=== PATIENT | female | born 1955 | race Caucasian/White ===

== ENCOUNTER 2024-02-26 15:01 | Inpatient (IN) ==
--- NOTE | 2024-02-26 15:16 | Emergency Department Note ---
Impression & Plan Syncope, Sternal fracture, Acute hypotension, Hernia, hiatal ED Provider Note NAME: REMEDIOS WARREN AGE: 68 SEX: F : 1955 ARRIVES VIA: Ambulance INFORMANT: Patient, EMS ED PROVIDER(S): Yuval Ribeiro DO CHIEF COMPLAINT: Syncope HPI: The patient is a 68-year-old female who presented to the emergency department for an evaluation after having a syncopal episode. The patient states that she does not know exactly happened but her significant other was sitting beside her. [place] was [place] the stadium and she complained that she was feeling very warm. Her significant other noted that she started to shake but not have convulsions or seizure. He noted that she was not breathing. They alerted the prehospital personnel. The patient started to receive chest compressions but return to consciousness quickly. There is no reported postictal phase. The patient does complain of some chest pain but is reproducible and was felt to be secondary to the CPR. She did receive fentanyl prior to arrival. The patient was reportedly hypotensive as well. ROS: See above HPI for pertinent positives & negatives. A total of 10 systems reviewed and were otherwise negative. PAST MEDICAL HISTORY: See Below PAST SURGICAL HISTORY: See Below FAMILY HISTORY: See Below SOCIAL HISTORY: See Below HOME MEDICATIONS: See Below ALLERGIES: See Below VITALS: See Below PHYSICAL EXAMINATION: GENERAL: Patient is awake alert in no acute distress patient is resting comfortably and showing no signs of anxiety EYES: The conjunctivae are clear. The pupils are round and reactive. EARS, NOSE, MOUTH AND THROAT: The nose is without any evidence of any deformity. NECK: The neck is nontender and supple. RESPIRATORY: Normal respiratory effort is noted there is no evidence of wheezing rhonchi or rales CARDIOVASCULAR: Regular rate and rhythm noted there no murmurs rubs or gallops normal S1 normal S2. GASTROINTESTINAL: The abdomen is soft. Abdomen is nontender. MUSCULOSKELETAL/EXTREMITIES: There is no evidence of gross deformity full range of motion is noted in the hips and shoulders. SKIN: There is no obvious evidence of any rash. There are no petechiae, pallor or cyanosis noted. NEUROLOGIC: Patient is awake alert and oriented x3 strength is symmetric patellar reflexes are 2+ bilaterally MEDICAL DECISION MAKING: The patient is a 68-year-old female who presented to the emergency department for an evaluation after having a syncopal episode. The patient was at the football game and had a syncopal episode. They started CPR on the patient because she was felt to have lost pulses. She had return of consciousness rather quickly. I am unsure exactly what happened with this episode but the patient did complain of feeling very hot prior to the episode. She was found to be hypotensive. She was treated with free hospital fluids as well as IV pain medication. She was further treated with pain medication and IV fluids in the emergency department. I discussed patient's laboratory and radiographic studies with her. She continues to have borderline blood pressure. Her D-dimer was elevated and she was found of a sternal fracture. CT of the chest did not show any signs of pulmonary embolism. Given the patient's findings I do not feel that she is a good candidate for outpatient follow-up at this time. She continues to be hypotensive at times. I will discuss her condition with the on- call [facility]. Triage Nursing notes reviewed. Prior medical records reviewed Vital Signs: reviewed and remarkable for episodes of hypotension Differential diagnosis: Vasovagal event, dehydration, infection, hypoglycemia, electrolyte abnormalities, cardiac sources, intracerebral event, pulmonary embolism, seizure, toxicologic, neurologic, as well as other pathologies. ER treatment provided: See below Diagnostics interpreted by me: ECG: EKG was obtained in the emergency department. My interpretation is normal sinus rhythm at 71 bpm. There is no ectopy. There was no acute ST segment abnormalities noted. No previous tracing was available. Prehospital EKG was reviewed. My interpretation is sinus rhythm at 68 bpm. There was no ectopy or acute ST segment abnormalities. This compares similar to the tracing obtained in the emergency department. Cardiac Monitoring: An order was placed for continuous cardiac monitoring. The monitor shows a rate of 82 bpm with sinus rhythm. Laboratory studies: As stated above and show below. Imaging studies: See below. Radiographic imaging was reviewed by myself Consultation(s): I discussed this case with Dr. Alcantara who is on-call for the [facility] group. Past Med/Surg History Problem List (Updated 02/26/24 @ 16:59 by Yuval Ribeiro DO) Hernia, hiatal (Acute) Acute hypotension (Acute) Sternal fracture (Acute) Syncope (Acute) Medical History Hypertension Social History Smoking Status: Never smoker Preferred Language: Icelandic Feels Safe at Home: Yes Allergies Allergies Allergy/AdvReac Type Severity Reaction Status Date / Time Sulfa (Sulfonamide Allergy Hives Verified 02/26/24 16:16 Antibiotics) thimerosal AdvReac Redness of Verified 02/26/24 16:17 Skin Results & Data (ED) Vital Signs Vital Signs - 24 hr 02/26/24 15:18 02/26/24 15:30 02/26/24 15:36 Temperature 36.5 C Temperature Source Oral Pulse Rate 73 64 Pulse Rate [Right Finger] 80 Pulse Rhythm Regular Pulse Strength Normal Respiratory Rate 14 18 Respiratory Effort / Characteristics Non-Labored Spontaneous Non-Labored Spontaneous Respiratory Depth Normal Normal Respiratory Pattern Regular Blood Pressure 102/65 Blood Pressure [Left Arm] 92/65 L Blood Pressure Mean 77 Blood Pressure Mean [Left Arm] 74 Pulse Oximetry 99 98 98 Oxygen Delivery Method Room Air Room Air Room Air Sepsis Recent Fever Within 48 Hours No Sepsis New/Unexplained Change in Mental Status N/A Sepsis Action Taken by Nursing No Action Required 02/26/24 15:45 02/26/24 15:55 02/26/24 16:00 Temperature Temperature Source Pulse Rate 62 Pulse Rate [Right Finger] 68 78 Pulse Rhythm Pulse Strength Respiratory Rate 19 18 Respiratory Effort / Characteristics Non-Labored Spontaneous Non-Labored Spontaneous Respiratory Depth Normal Normal Respiratory Pattern Regular Regular Blood Pressure Blood Pressure [Left Arm] 98/64 L 93/59 L Blood Pressure Mean Blood Pressure Mean [Left Arm] 75 70 Pulse Oximetry 100 100 Oxygen Delivery Method Room Air Room Air Sepsis Recent Fever Within 48 Hours Sepsis New/Unexplained Change in Mental Status Sepsis Action Taken by Nursing 02/26/24 16:15 02/26/24 16:36 02/26/24 16:45 Temperature Temperature Source Pulse Rate Pulse Rate [Right Finger] 86 92 H 82 Pulse Rhythm Pulse Strength Respiratory Rate 20 16 16 Respiratory Effort / Characteristics Non-Labored Spontaneous Non-Labored Spontaneous Non-Labored Spontaneous Respiratory Depth Normal Normal Normal Respiratory Pattern Regular Regular Blood Pressure Blood Pressure [Left Arm] 105/66 87/62 L 112/62 Blood Pressure Mean Blood Pressure Mean [Left Arm] 79 70 78 Pulse Oximetry 100 99 98 Oxygen Delivery Method Room Air Room Air Room Air Sepsis Recent Fever Within 48 Hours Sepsis New/Unexplained Change in Mental Status Sepsis Action Taken by Nursing 02/26/24 17:00 Temperature Temperature Source Pulse Rate Pulse Rate [Right Finger] 86 Pulse Rhythm Pulse Strength Respiratory Rate 18 Respiratory Effort / Characteristics Non-Labored Spontaneous Respiratory Depth Normal Respiratory Pattern Regular Blood Pressure Blood Pressure [Left Arm] 104/68 Blood Pressure Mean Blood Pressure Mean [Left Arm] 80 Pulse Oximetry 99 Oxygen Delivery Method Room Air Sepsis Recent Fever Within 48 Hours Sepsis New/Unexplained Change in Mental Status Sepsis Action Taken by Long-Term Medications Current Medication List: was personally reviewed by me Laboratory Data Attestation: I reviewed the patient's lab results. 02/26/24 15:10 02/26/24 15:10 Lab Results 02/26/24 02/26/24 Range/Units 15:10 15:18 WBC 6.81 (4.8-10.8) K/ul RBC 4.03 L (4.20-5.40) M/uL Hgb 12.0 (12.0-16.0) g/dl POC Hgb 12.6 (12.0-16.0) g/dl Hct 36.6 L (37.0-47.0) % POC Hct 37 (37-47) % MCV 90.8 (80.0-100.0) fL MCH 29.8 (25.0-34.0) pg MCHC 32.8 (32.0-36.0) g/dL RDW Std Deviation 48.3 H (36.4-46.3) fL RDW Coeff of Patrick 14.5 (11.5-14.5) % Plt Count 278 (130-400) K/uL MPV 9.9 (9.4-12.4) fL Immature Gran % (Auto) 0.4 % Neut % (Auto) 56.7 % Lymph % (Auto) 33.6 % Tift % (Auto) 7.5 % Eos % (Auto) 1.2 % Baso % (Auto) 0.6 % Neut # (Auto) 3.86 (1.40-6.50) K/uL Lymph # (Auto) 2.29 (1.20-3.40) K/uL Tift # (Auto) 0.51 (0.11-0.59) K/uL Eos # (Auto) 0.08 (0.00-0.50) K/uL Baso # (Auto) 0.04 (0.00-0.20) K/uL Immature Gran # (Auto) 0.03 (0.01-0.20) K/uL PT 10.8 (9.0-12.0) Seconds INR 1.0 (0.9-1.1) APTT 20 L (21-31) Seconds PTT Ratio 0.7 D-Dimer 1100 H* (0-500) ug/L FEU POC Sodium 139 (135-144) mmol/L Sodium 138 (136-145) mmol/L POC Potassium 4.1 (3.3-5.0) mmol/L Potassium 3.6 (3.5-5.1) mmol/L POC Chloride 104 (101-112) mmol/L Chloride 106 (98-107) mmol/L Carbon Dioxide 24 (21-32) mmol/L POC Total CO2 24 (24-31) mmol/L Anion Gap 8 (3-11) POC Anion Gap 16.0 (16-25) mmol/L POC BUN 20 H (7-18) mg/dl BUN 17 (6-23) mg/dl Creatinine 1.08 (0.6-1.2) mg/dl POC Creatinine 1.2 (0.6-1.3) mg/dl Est Cr Clr Drug Dosing 49.7 ml/min eGFR 56.65 BUN/Creatinine Ratio 15.7 (10-20) Glucose 81 (70-99(Fasting)) mg/dl POC Glucose (other) 83 (70-99) mg/dl Calcium 8.7 (8.6-10.3) mg/dl POC Ioniz Calcium Peace 1.10 L (1.12-1.32) mmol/l Magnesium 1.7 (1.7-2.4) mg/dl Total Bilirubin 0.4 (0.2-1.0) mg/dl AST 18 (13-39) U/L ALT 12 (7-52) U/L Alkaline Phosphatase 42 (34-104) U/L Total Creatine Kinase 79 (26-192) U/L Troponin I High Sens 2.9 (0-14) pg/ml Total Protein 6.7 (6.0-8.3) gm/dl Albumin 4.0 (3.4-5.0) gm/dl Globulin 2.7 (2.5-4.0) gm/dl Albumin/Globulin Ratio 1.5 (0.9-2) Lipase 19 (11-82) U/L TSH 7.214 H (0.300-4.500) uIu/ml Free T4 0.86 (0.61-1.60) ng/dl Ethyl Alcohol mg/dL 45.2 H (<10.0) mg/dl Administered Medications Discontinued Medications Acetaminophen (Acetaminophen 500 Mg Tab) 1,000 mg PO NOW STA Stop: 02/26/24 15:57 Last Admin: 02/26/24 16:06 Dose: 1,000 mg Documented By: JARRED Sodium Chloride (Nss) 1,000 mls @ 999 mls/hr IV .Q1H1M LOLITA Stop: 02/26/24 16:15 Last Infusion: 02/26/24 17:06 Dose: Infused Documented By: Admin: 02/26/24 15:28 Dose: 999 mls/hr [place]ed [place]: [facility] [place] Chloride (Nss) 1,000 mls @ 999 mls/hr IV .Q1H1M ONE Stop: 02/26/24 16:56 Last Admin: 02/26/24 16:07 Dose: 999 mls/hr Documented By: JARRED Ioversol (Optiray 320 125ml) 119 ml IV ONCE ONE Stop: 02/26/24 16:29 Last Admin: 02/26/24 16:28 Dose: 119 ml Documented By: ASHLEY Imaging Data Attestation: I personally reviewed and interpreted this imaging study as follows: My Impression: 1 view chest x-ray was obtained in the emergency department. My interpretation is hiatal hernia, there is no free air, final report below. CT of the chest was obtained in the emergency department. My interpretation is no free air or definite infiltrate, final report below. Radiologist's Impression: Chest X-Ray 02/26/24 15:04 XR chest 1V portable CLINICAL HISTORY: Syncope. COMPARISON STUDY: No previous studies for comparison. FINDINGS: There is no pneumothorax or pleural effusion. No consolidation is present. Pulmonary vascularity is normal. There is a large hiatal hernia. Cardiac size is likely normal. IMPRESSION: 1. No acute cardiopulmonary findings. 2. Large hiatal hernia. ACT 112: Negative or not required by law. Electronically signed by: Blaise Thao M.D. 02/26/2024 3:23 PM Chest CTA 02/26/24 16:15 CT ANGIOGRAPHY OF THE CHEST, PULMONARY EMBOLUS PROTOCOL CLINICAL HISTORY: Chest pain. Diaphoretic. Evaluate for pulmonary embolus. COMPARISON STUDY: Chest radiograph performed earlier today. TECHNIQUE: Following IV administration of 119 mL of Optiray, helical axial images of the chest were obtained utilizing the pulmonary embolus protocol. Maximal intensity projections and sagittal and coronal reformats were viewed on an independent 3D workstation. IV contrast was administered without complication. Automated exposure control was utilized for the study. A dose lowering technique was utilized adhering to the principles of ALARA. CT DOSE: 420.41 mGy.cm FINDINGS: No pulmonary emboli are identified. There is no thoracic aortic dissection. Size of the heart is normal. There is a large hiatal hernia with partially intrathoracic stomach. Of note, the intrathoracic portion of the stomach is distended with fluid and ingested contents. There is mild dilatation of the esophagus. No pneumothorax or pleural effusion is present. There is no consolidation to suggest pneumonia. A few small nodules within the lungs are likely benign. There are no suspicious pulmonary nodules. Subtle indentation of the anterior cortex of the sternum suggests an acute nondisplaced fracture. No additional fractures within the bony thorax are identified. A water attenuation 1.3 cm segment 7 hepatic lesion represents a cyst. There is no thoracic lymphadenopathy. There is no thoracic spine fractures. IMPRESSION: 1. No pulmonary emboli identified. 2. Acute nondisplaced sternal fracture. 3. Large hiatal hernia with partially intrathoracic stomach. Intrathoracic portion of the stomach distended with fluid and ingested contents. Mild dilatation of the esophagus. ACT 112: Negative or not required by law. Electronically signed by: Blaise Thao M.D. 02/26/2024 4:45 PM Discharge Plan Visit Data Chief Complaint: Cardiac Assessment Stated Complaint: CARDIAC ARREST ED Provider: Yuval Ribeiro Discharge Problem: Syncope, Sternal fracture, Acute hypotension, Hernia, hiatal Patient Disposition: Being Evaluated by Hospitalist Forms Stand Alone Forms: [facility] Referrals Referrals: PCP,NO [Primary Care Provider] - Discharge Problem: Syncope Qualifiers: Syncope type: unspecified Qualified Code(s): R55 - Syncope and collapse Sternal fracture Qualifiers: Encounter type: initial encounter Sternal location: unspecified Fracture type: closed Qualified Code(s): S22.20XA - Unspecified fracture of sternum, initial encounter for closed fracture
--- NOTE | 2024-02-26 15:24 | XRay Report ---
XR chest 1V portable CLINICAL HISTORY: Syncope. COMPARISON STUDY: No previous studies for comparison. FINDINGS: There is no pneumothorax or pleural effusion. No consolidation is present. Pulmonary vascul arity is normal. There is a large hiatal hernia. Cardiac size is likely normal. IMPRESSION: 1. No acute cardiopulmonary findings. 2. Large hiatal hernia. ACT 112: Negative or not required by law. Electronically signed by: Blaise Thao M.D. 02/26/2024 3:23 PM
[2024-02-26] MEDS: SODIUM CHLORIDE 0.9% 1,000 ML IV SCH ×2 (15:28→18:56)
[2024-02-26 15:32] LABS: iSTAT Creatinine 1.2 mg/dl (0.6-1.3); iSTAT Hemoglobin 12.6 g/dl (12.0-16.0); iSTAT Ionized Calcium 1.1 mmol/l (1.12-1.32); iSTAT Potassium 4.1 mmol/L (3.3-5.0)
[2024-02-26 15:40] LABS: Basophils # (auto) 0.04 K/uL (0.00-0.20); Basophils % (auto) 0.6 %; Eosinophils # (auto) 0.08 K/uL (0.00-0.50); Eosinophils % (auto) 1.2 %; Hematocrit (blood only) 36.6 % (37.0-47.0); Immature Granulocytes # (auto) 0.03 K/uL (0.01-0.20); Immature Granulocytes % (auto) 0.4 %; Lymphocytes # (auto) 2.29 K/uL (1.20-3.40); Lymphocytes % (auto) 33.6 %; Mean Corpuscular Hemoglobin 29.8 pg (25.0-34.0); Mean Corpuscular Hgb Conc 32.8 g/dL (32.0-36.0); Mean Corpuscular Volume 90.8 fL (80.0-100.0); Mean Platelet Volume 9.9 fL (9.4-12.4); Monocytes # (auto) 0.51 K/uL (0.11-0.59); Monocytes % (auto) 7.5 %; Neutrophils # (auto) 3.86 K/uL (1.40-6.50); Neutrophils % (auto) 56.7 %; Platelet Count 278 K/uL (130-400); RDW Coefficient of Variation 14.5 % (11.5-14.5); RDW Standard Deviation 48.3 fL (36.4-46.3); Red Blood Count 4.03 M/uL (4.20-5.40); White Blood Count 6.81 K/ul (4.8-10.8)
[2024-02-26 15:52] LABS: Albumin Globulin Ratio 1.5 (0.9-2); BUN Creatinine Ratio 15.7 (10-20); Bilirubin,Total 0.4 mg/dl (0.2-1.0); Calcium 8.7 mg/dl (8.6-10.3); Creatinine Clr Calc Pharmacy 49.7 ml/min; Globulin 2.7 gm/dl (2.5-4.0); Magnesium 1.7 mg/dl (1.7-2.4); Potassium 3.6 mmol/L (3.5-5.1); Total Protein 6.7 gm/dl (6.0-8.3)
[2024-02-26 15:58] LABS: Troponin I High Sensitivity 2.9 pg/ml (0-14)
[2024-02-26 16:03] LABS: Partial Thromboplastin Ratio 0.7; Partial Thromboplastin Time 20 Seconds (21-31); Prothrombin Time 10.8 Seconds (9.0-12.0)
[2024-02-26] MEDS: ACETAMINOPHEN 500 MG TAB PO STA (16:06)
[2024-02-26] MEDS: SODIUM CHLORIDE 0.9% 1,000 ML IV ONE (16:07)
[2024-02-26 16:08] LABS: Thyroid Stimulating Hormone 7.214 uIu/ml (0.300-4.500)
[2024-02-26 16:13] LABS: D Dimer 1100 ug/L FEU (0-500)
[2024-02-26] MEDS: OPTIRAY 320 125ml IV ONE (16:28)
[2024-02-26 16:43] LABS: T4 Free Thyroxine 0.86 ng/dl (0.61-1.60)
--- NOTE | 2024-02-26 16:47 | CT Scan Report ---
CT ANGIOGRAPHY OF THE CHEST, PULMONARY EMBOLUS PROTOCOL CLINICAL HISTORY: Chest pain. Diaphoretic. Evaluate for pulmonary embolus. COMPARISON STUDY: Chest radiograph performed earlier today. TECHNIQUE: Following IV administration of 119 mL of Optiray, helical axial images of the chest were o btained utilizing the pulmonary embolus protocol. Maximal intensity projections and sagittal and cor onal reformats were viewed on an independent 3D workstation. IV contrast was administered without co mplication. Automated exposure control was utilized for the study. A dose lowering technique was ut ilized adhering to the principles of ALARA. CT DOSE: 420.41 mGy.cm FINDINGS: No pulmonary emboli are identified. There is no thoracic aortic dissection. Size of the he art is normal. There is a large hiatal hernia with partially intrathoracic stomach. Of note, the intr athoracic portion of the stomach is distended with fluid and ingested contents. There is mild dilatat ion of the esophagus. No pneumothorax or pleural effusion is present. There is no consolidation to levi ggest pneumonia. A few small nodules within the lungs are likely benign. There are no suspicious pulm onary nodules. Subtle indentation of the anterior cortex of the sternum suggests an acute nondisplace d fracture. No additional fractures within the bony thorax are identified. A water attenuation 1.3 cm segment 7 hepatic lesion represents a cyst. There is no thoracic lymphadenopathy. There is no thorac ic spine fractures. IMPRESSION: 1. No pulmonary emboli identified. 2. Acute nondisplaced sternal fracture. 3. Large hiatal hernia with partially intrathoracic stomach. Intrathoracic portion of the stomach dis tended with fluid and ingested contents. Mild dilatation of the esophagus. ACT 112: Negative or not required by law. Electronically signed by: Blaise Thao M.D. 02/26/2024 4:45 PM
--- NOTE | 2024-02-26 17:28 | History & Physical Report ---
Date of Service February 26, 2024 Assessment & Plan (1) Cardiac arrest with successful resuscitation: Plan: This is a 68 y/o female with history of hypertension, acid reflux, and osteoporosis who presented to the ED today via EMS after [place] cardiac arrest at the stadium [place] the [employer] [place]. CPR was initiated and pt became responsive again within 5-6 compressions. Post-resuscitation she notes chest pain but this is likely secondary to sternal fracture noted on work-up in the ED. Her initial BP in the field was 70s systolic. She has received 2600 cc of IVF to this point with improvement in her BPs although still low to low-normal with systolic in the 90s to 100s. Initial troponin was negative, no acute EKG changes to indicate STEMI. D-dimer was elevated so CTA of the chest was done and is negative for PE and thoracic aortic dissection. Electrolytes without significant abnormality. Due to unclear etiology of the cardiac arrest and persistently low BPs, pt was referred for admission for further work-up. Differential of symptoms include severe hypotension due to dehydration (diuretic, EtOH), syncope, stroke, seizure, heat stroke, or evolving cardiac event. - Admit to PCU - Trend troponin, repeat EKG in the AM - Check ECHO - CT head to r/o acute CVA - EEG to evaluation for seizure - Carotid duplex to evaluate for carotid stenosis - possible hypoperfusion - Bilateral venous duplex to r/o DVT (2) Acute hypotension: Plan: Likely related to dehydration Hold diuretic/Lisinopril Continue IVF hydration - NSS at 125 ml/hr Encourage oral intake (3) Sternal fracture: Plan: Likely due to chest compressions in the setting of known osteoporosis Scheduled IV acetaminophen, lidocaine patch, prn Toradol Avoiding narcotics for now due to low BP (4) GERD (gastroesophageal reflux disease): Plan: Large hiatal hernia seen on CT with portion of stomach intrathoracic - will need f/u as outpatient. IV pantoprazole for now Diet as tolerated Plan Pt seen and reviewed with collaborating physician, Dr. Alcantara. Plan of care discussed and as outlined above. Code status: full code DVT prophylaxis: Lovenox Admit to PCU Elaine Fofana PA-C History of Present Illness Chief Complaint: cardiac arrest Primary Care Provider: NO PCP This is a 68 y/o female with history of hypertension, acid reflux, and osteoporosis who presented to the ED today via EMS after reported cardiac arrest at the stadium during the [employer] [place]. History obtained from both the patient and her significant other at the bedside. He reports that patient seemed to be herself at half-time when they went to get something to eat (sausage sandwich, chicken tenders) and had an alcoholic drink. After eating, she developed severe mid to upper back pain after eating. Initially, she attributed this to heartburn. Then started to feel like her vision was "silvery" and decreased so she told her significant other that they needed to get out of the sun because she was starting to feel warm. Tried drinking some water but continued to feel poorly. Her significant other noted she was diaphoretic and called for help. By the time EMS arrived, she was unresponsive. She was also noted to have perioral cyanosis and did not appear to be breathing, which was confirmed by a bystander. EMS notes were reviewed. Pt was unresponsive and pulse was unable to be obtained so CPR initiated. Within 5-6 compressions, pt became responsive but was hypotensive with systolic BP in the 70s. IV access obtained and pt given 600 ml of IVF pre-hospital. In the ED, she has received an additional 2L of IVF but BPs have remained low to low-normal. Pt denies feeling dizzy but has limited recollection of the events until she became aware of someone performing chest compressions on her. She denies dyspnea, palpitations. No history of similar symptoms or syncopal episodes. She is complaining of her fingers currently feeling numb and tingling in the tips bilaterally. Feels overall weak and tired. Having chest pain but work-up in the ED reveals a sternal fracture, likely related to CPR. Allergies Allergy/AdvReac Type Severity Reaction Status Date / Time Sulfa (Sulfonamide Allergy Hives Verified 02/26/24 16:16 Antibiotics) thimerosal AdvReac Redness of Verified 02/26/24 16:17 Skin Home Medications Medication Instructions Recorded Confirmed Type calcium carbonate (Calcium 600) 600 mg PO DAILY 02/26/24 02/26/24 History hydrochlorothiazide 25 mg tablet 25 mg PO DAILY 02/26/24 02/26/24 History lisinopril 5 mg tablet 5 mg PO DAILY 02/26/24 02/26/24 History pantoprazole 40 mg tablet,delayed 40 mg PO DAILY 02/26/24 02/26/24 History release risedronate 35 mg tablet 35 mg PO WK 02/26/24 02/26/24 History Past Med/Surg History Problem List (Updated 02/26/24 @ 18:21 by Mary Fofana PA-C) Cardiac arrest with successful resuscitation GERD (gastroesophageal reflux disease) Acute hypotension (Acute) Sternal fracture (Acute) Syncope (Acute) Medical History Peripheral neuropathy Osteoporosis Hernia, hiatal Hypertension Surgical History History of section Family History Father Stroke Mother Hypertension Social History Smoking Status: Never smoker Hx Alcohol Use: Yes Alcohol type: beer Alcohol Intake Frequency: 2-4 x/Month Hx Substance Use: No Preferred Language: Spanish Communication Ability: Effective Remotely Piloted Vehicle Controller Required: No Beliefs That Will Affect Care: None Current Living Situation: Alone current occupational status: retired current occupation: retired nurse Feels Safe at Home: Yes Safety Concerns: Feels Safe At This Time Assistive Devices: Contacts Review of Systems Review of Systems: All systems reviewed & are unremarkable except as noted in Subjective Physical Exam Physical Exam: Please see physician note for details of the physical exam. Results & Data Results & Data Vital Signs (Past 12 Hours) Vital Signs Temp Pulse Pulse Resp BP BP Pulse Ox 02/26/24 17:15 88 22 93/74 L 99 02/26/24 17:00 86 18 104/68 99 02/26/24 16:45 82 16 112/62 98 02/26/24 16:36 92 H 16 87/62 L 99 02/26/24 16:15 86 20 105/66 100 02/26/24 16:00 78 18 93/59 L 100 02/26/24 15:55 62 02/26/24 15:45 68 19 98/64 L 100 02/26/24 15:36 64 98 02/26/24 15:30 80 18 92/65 L 98 02/26/24 15:18 36.5 C 73 14 102/65 99 O2 Del Method 02/26/24 17:15 Room Air 02/26/24 17:00 Room Air 02/26/24 16:45 Room Air 02/26/24 16:36 Room Air 02/26/24 16:15 Room Air 02/26/24 16:00 Room Air 02/26/24 15:55 02/26/24 15:45 Room Air 02/26/24 15:36 Room Air 02/26/24 15:30 Room Air 02/26/24 15:18 Room Air Laboratory Results Lab Results 02/26/24 02/26/24 Range/Units 15:10 15:18 WBC 6.81 (4.8-10.8) K/ul RBC 4.03 L (4.20-5.40) M/uL Hgb 12.0 (12.0-16.0) g/dl POC Hgb 12.6 (12.0-16.0) g/dl Hct 36.6 L (37.0-47.0) % POC Hct 37 (37-47) % MCV 90.8 (80.0-100.0) fL MCH 29.8 (25.0-34.0) pg MCHC 32.8 (32.0-36.0) g/dL RDW Std Deviation 48.3 H (36.4-46.3) fL RDW Coeff of Patrick 14.5 (11.5-14.5) % Plt Count 278 (130-400) K/uL MPV 9.9 (9.4-12.4) fL Immature Gran % (Auto) 0.4 % Neut % (Auto) 56.7 % Lymph % (Auto) 33.6 % [place] % (Auto) 7.5 % Eos % (Auto) 1.2 % Baso % (Auto) 0.6 % Neut # (Auto) 3.86 (1.40-6.50) K/uL Lymph # (Auto) 2.29 (1.20-3.40) K/uL [place] # (Auto) 0.51 (0.11-0.59) K/uL Eos # (Auto) 0.08 (0.00-0.50) K/uL Baso # (Auto) 0.04 (0.00-0.20) K/uL Immature Gran # (Auto) 0.03 (0.01-0.20) K/uL PT 10.8 (9.0-12.0) Seconds INR 1.0 (0.9-1.1) APTT 20 L (21-31) Seconds PTT Ratio 0.7 D-Dimer 1100 H* (0-500) ug/L FEU POC Sodium 139 (135-144) mmol/L Sodium 138 (136-145) mmol/L POC Potassium 4.1 (3.3-5.0) mmol/L Potassium 3.6 (3.5-5.1) mmol/L POC Chloride 104 (101-112) mmol/L Chloride 106 (98-107) mmol/L Carbon Dioxide 24 (21-32) mmol/L POC Total CO2 24 (24-31) mmol/L Anion Gap 8 (3-11) POC Anion Gap 16.0 (16-25) mmol/L POC BUN 20 H (7-18) mg/dl BUN 17 (6-23) mg/dl Creatinine 1.08 (0.6-1.2) mg/dl POC Creatinine 1.2 (0.6-1.3) mg/dl Est Cr Clr Drug Dosing 49.7 ml/min eGFR 56.65 BUN/Creatinine Ratio 15.7 (10-20) Glucose 81 (70-99(Fasting)) mg/dl POC Glucose (other) 83 (70-99) mg/dl Calcium 8.7 (8.6-10.3) mg/dl POC Ioniz Calcium Peace 1.10 L (1.12-1.32) mmol/l Magnesium 1.7 (1.7-2.4) mg/dl Total Bilirubin 0.4 (0.2-1.0) mg/dl AST 18 (13-39) U/L ALT 12 (7-52) U/L Alkaline Phosphatase 42 (34-104) U/L Total Creatine Kinase 79 (26-192) U/L Troponin I High Sens 2.9 (0-14) pg/ml Total Protein 6.7 (6.0-8.3) gm/dl Albumin 4.0 (3.4-5.0) gm/dl Globulin 2.7 (2.5-4.0) gm/dl Albumin/Globulin Ratio 1.5 (0.9-2) Lipase 19 (11-82) U/L TSH 7.214 H (0.300-4.500) uIu/ml Free T4 0.86 (0.61-1.60) ng/dl Ethyl Alcohol mg/dL 45.2 H (<10.0) mg/dl Diagnostic Findings Chest X-Ray 02/26/24 15:04 XR chest 1V portable CLINICAL HISTORY: Syncope. COMPARISON STUDY: No previous studies for comparison. FINDINGS: There is no pneumothorax or pleural effusion. No consolidation is present. Pulmonary vascularity is normal. There is a large hiatal hernia. Cardiac size is likely normal. IMPRESSION: 1. No acute cardiopulmonary findings. 2. Large hiatal hernia. ACT 112: Negative or not required by law. Electronically signed by: Blaise Thao M.D. 02/26/2024 3:23 PM Chest CTA 02/26/24 16:15 CT ANGIOGRAPHY OF THE CHEST, PULMONARY EMBOLUS PROTOCOL CLINICAL HISTORY: Chest pain. Diaphoretic. Evaluate for pulmonary embolus. COMPARISON STUDY: Chest radiograph performed earlier today. TECHNIQUE: Following IV administration of 119 mL of Optiray, helical axial images of the chest were obtained utilizing the pulmonary embolus protocol. Maximal intensity projections and sagittal and coronal reformats were viewed on an independent 3D workstation. IV contrast was administered without complication. Automated exposure control was utilized for the study. A dose lowering technique was utilized adhering to the principles of ALARA. CT DOSE: 420.41 mGy.cm FINDINGS: No pulmonary emboli are identified. There is no thoracic aortic dissection. Size of the heart is normal. There is a large hiatal hernia with partially intrathoracic stomach. Of note, the intrathoracic portion of the stomach is distended with fluid and ingested contents. There is mild dilatation of the esophagus. No pneumothorax or pleural effusion is present. There is no consolidation to suggest pneumonia. A few small nodules within the lungs are likely benign. There are no suspicious pulmonary nodules. Subtle indentation of the anterior cortex of the sternum suggests an acute nondisplaced fracture. No additional fractures within the bony thorax are identified. A water attenuation 1.3 cm segment 7 hepatic lesion represents a cyst. There is no thoracic lymphadenopathy. There is no thoracic spine fractures. IMPRESSION: 1. No pulmonary emboli identified. 2. Acute nondisplaced sternal fracture. 3. Large hiatal hernia with partially intrathoracic stomach. Intrathoracic portion of the stomach distended with fluid and ingested contents. Mild dilatation of the esophagus. ACT 112: Negative or not required by law. Electronically signed by: Blaise Thao M.D. 02/26/2024 4:45 PM Medications Administered Discontinued Medications Acetaminophen (Acetaminophen 500 Mg Tab) 1,000 mg PO NOW STA Stop: 02/26/24 15:57 Last Admin: 02/26/24 16:06 Dose: 1,000 mg Documented By: JARRED Sodium Chloride (Nss) 1,000 mls @ 999 mls/hr IV .Q1H1M LOLITA Stop: 02/26/24 16:15 Last Infusion: 02/26/24 17:06 Dose: Infused Documented By: Admin: 02/26/24 15:28 Dose: 999 mls/hr Documented By: [facility] Sodium Chloride (Nss) 1,000 mls @ 999 mls/hr IV .Q1H1M ONE Stop: 02/26/24 16:56 Last Admin: 02/26/24 16:07 Dose: 999 mls/hr Documented By: JARRED Ioversol (Optiray 320 125ml) 119 ml IV ONCE ONE Stop: 02/26/24 16:29 Last Admin: 02/26/24 16:28 Dose: 119 ml Documented By: EDK Supervising Physician Co-Signing Physician Notes please refer to supplemental note for Attending Addendum: (3) Sternal fracture Encounter type: initial encounter Fracture type: closed Sternal location: unspecified Qualified Code(s): S22.20XA - Unspecified fracture of sternum, initial encounter for closed fracture (4) GERD (gastroesophageal reflux disease) Esophagitis presence: esophagitis presence not specified Qualified Code(s): K21.9 - Gastro-esophageal reflux disease without esophagitis
[2024-02-26] MEDS ORDERED: KETOROLAC TROMETHAMINE 15 MG/ML VIAL IV PRN (17:44)
--- NOTE | 2024-02-26 18:01 | Communication Note ---
Date of Service: February 26, 2024 Attending Addendum: Case reviewed with the advanced practitioner. I have personally performed a history and physical examination on the patient. I have reviewed the advanced practitioner's documentation on the date of service referenced in note, and I agree with, and take responsibility for the plan of care. please refer to her notes for full details patient seen and examined, records reviewed by myself as well on exam, patient seen resting in bed, awake and alert, oriented x 3, answering questions appropriately Patient significant other at the bedside, permission obtained from patient if he can be around during interview and exam, patient expressed agreement History obtained from patient's significant other and the patient herself. Notes from first responders also reviewed Past medical history includes hypertension, GERD, osteoporosis. Patient denies history of CAD, syncope, seizure As per patient's significant other, patient was doing fine the past few days and this morning as well as they travelled for the football game. After the first half of the game, they went to obtain food from the concession stand, and upon returning to their seat, patient told her significant other that she was having upper back pain, then complained of feeling hot. She was then noticed to be hunching over, become unresponsive, with cyanotic lips. First responders called, patient laid on the ground, CPR performed. After about 5-6 chest compressions, patient regained consciousness. Systolic BP found to be in the 70s, EKG showing normal sinus rhythm with no signs of acute ischemia per EMS notes. She was then given 600 cc IV fluid bolus and fentanyl for report of chest pain after chest compressions. At the ED, patient was received awake and alert, blood pressure systolic 80s, on room air. She was given 2 L of IV fluid bolus with improvement of sytolic BP in the 120s. CT chest: No PE, dissection, positive large hiatal hernia Troponin negative EKG no signs of acute ischemia or infarct On exam patient seen resting in bed, awake and alert, oriented x 3 Answering questions appropriately, very good historian She states that she remembers feeling well prior to this episode Recalls while seated having sudden onset of upper back pain and afterwards noticed that her vision was turning "silver/blurry" Does not recall anything else since that point Only became aware again when CPR was already being performed on her Denies having dizziness, headache, chest pain, palpitations, nausea, abdominal pain, shortness of breath before the start of events above Physical Exam: VS noted and reviewed General- oriented x 3, not in distress, speaks in sentences with no effort or accessory muscle use Head- atraumatic Eyes- PERRL, EOMI, anicteric ENT- oropharynx clear Neck- supple, no JVD, no adenopathy, no thyromegaly; carotids +2/2, no bruits appreciated Lungs- clear to auscultation bilaterally, no rales/wheezes Heart- normal rate, regular rhythm; no murmur, no gallop, no rub appreciated (+) mild erythema and tenderness on the left chest wall area Abdomen- normal bowel sounds, nondistended, soft, nontender, no masses or hepa tosplenomegaly Extremities- no pretibial edema, no calf tenderness; peripheral pulses intact Neuro- alert, oriented x 3; CN 2-12 grossly intact; motor 5/5 bilaterally;sensation 100% on all extremities; no other gross focal neurologic deficits Skin- warm & dry Back- unremarkable ASSESSMENT AND PLAN> Status postcardiac arrest a) in the setting of hypovolemia - On HCTZ, possible dehydration component - BP improved from systolic 80s to systolic 120s after 2 L of NSS bolus at the ED - IV NSS Hold lisinopril/HCTZ b) Rule out ACS - no history of CAD -Patient denies chest pain, palpitations, shortness of breath before and after event Troponin x 1 negative, follow-up second and third EKG no signs of acute ischemia or infarct, nonspecific T wave depressions in lead III -Echocardiogram ordered -Repeat EKG in the morning c) Rule out arrhythmia Telemetry monitoring If unrevealing, will need Zio patch as an outpatient d) Rule out acute CVA CT head ordered Carotid Doppler study ordered Brain MRI if CT head negative e) Rule out seizure EEG ordered f) Acute PE ruled out CT angio negative for acute PE, dissection D-dimer 1100, check Lower ext Doppler studies Alcohol intoxication Patient reports 1-2 drinks per week NSS, monitor closely Urine drug screen ordered for completion Large hiatal hernia Possible cause of back pain? Patient was consuming spicy food, alcohol beverage today Protonix IV daily Will need close outpatient follow-up, general surgery referral History of hypertension GERD Osteoporosis other diagnoses and plan of care as per advanced practitioner's notes plan of care discussed with patient in detail and at length all questions answered she is understanding, agreeable, comfortable with the plan of care Quincy Alcantara MD
[2024-02-26 18:07] LABS: Appearance Urine Clear (Clear); Bacteria Urine Automated 4+ (None Seen); Bilirubin Urine Negative (Negative); Blood Urine Negative (Negative); Color Urine Yellow; Epithelial Cell Urine Auto 0-2 /hpf (0-2); Glucose Urine UA Negative (Negative); Ketones Urine Negative (Negative); Leukocyte Esterase Urine Trace (Negative); Nitrite Urine Positive (Negative); Protein Urine Negative (Negative); RBC Urine Automated 0-2 /hpf (0-2); Specific Gravity Urine 1.025 (1.000-1.030); Urobilinogen Urine Negative (Negative); WBC Urine Automated 0-5 /hpf (0-5); pH Urine 6.5 (4.5-7.5)
[2024-02-26] MEDS: ACETAMINOPHEN 1,000 MG/100 ML VIAL IV SCH (18:58)
[2024-02-26] MEDS: PANTOprazole 40 MG in SYRINGE 0 ML IV SCH (20:54)
[2024-02-26] MEDS: LIDOCAINE 5% 1 PATCH TD SCH (21:23)
--- NOTE | 2024-02-27 04:38 | CT Scan Report ---
Exam(s): CT HEAD Without Contrast EXAM: CT Head Without Intravenous Contrast CLINICAL HISTORY: Reason for exam: syncope. TECHNIQUE: Axial computed tomography images of the head/brain without intravenous contrast. Automated exposure control was utilized for the study. A dose lowering technique was utilized adhering to the principles of ALARA. COMPARISON: No relevant prior studies available. FINDINGS: Brain: Unremarkable. No hemorrhage. No significant white matter disease. No edema. Ventricles: Unremarkable. No ventriculomegaly. Bones/joints: Unremarkable. No acute fracture. Soft tissues: Unremarkable. Sinuses: Unremarkable as visualized. No acute sinusitis. Mastoid air cells: Unremarkable as visualized. No mastoid effusion. IMPRESSION: No evidence of acute intracranial pathology. Electronically signed by: Debra Soria MD 02/27/24 04:37 AM
--- NOTE | 2024-02-27 05:00 | Ultrasound Report ---
Exam(s): US VENOUS BILATERAL LOWER EXTREMITIES EXAM: US Duplex Bilateral Lower Extremities Veins CLINICAL HISTORY: Reason for exam: cardiac arrest. TECHNIQUE: Real-time duplex ultrasound scan of the bilateral lower extremity veins integrating B-mode two-dimensional vascular structure, Doppler spectral analysis, color flow Doppler imaging and compression. COMPARISON: No relevant prior studies available. FINDINGS: Right deep veins: Unremarkable. No DVT in the right common femoral, femoral, proximal deep femoral or popliteal veins. The veins demonstrate normal color flow, are normally compressible, with normal phasic flow and/or augmentation response. Right superficial veins: Unremarkable. No thrombus in the visualized right great saphenous vein. Left deep veins: Unremarkable. No DVT in the left common femoral, femoral, proximal deep femoral or popliteal veins. The veins demonstrate normal color flow, are normally compressible, with normal phasic flow and/or augmentation response. Left superficial veins: Unremarkable. No thrombus in the visualized left great saphenous vein. Soft tissues: No acute findings. No popliteal cyst. IMPRESSION: No evidence of DVT in the lower extremities. Electronically signed by: Titus Auguste MD 02/27/24 04:59 AM
--- NOTE | 2024-02-27 05:00 | Ultrasound Report ---
Exam(s): US CAROTID EXAM: US Duplex Bilateral Extracranial Arteries CLINICAL HISTORY: Reason for exam: cardiac arrest vs. syncope. TECHNIQUE: Real-time duplex ultrasound scan of the extracranial arteries integrating B-mode two-dimensional vascular structure, Doppler spectral analysis and color flow Doppler imaging. COMPARISON: No relevant prior studies available. FINDINGS: Right common carotid artery: Minimal atherosclerotic disease. No occlusion or significant stenosis on color flow and spectral Doppler imaging. Right internal carotid artery: Unremarkable. No occlusion or significant stenosis on color flow and spectral Doppler imaging. Right external carotid artery: Unremarkable. No occlusion or significant stenosis on color flow and spectral Doppler imaging. Right vertebral artery: Unremarkable. Antegrade flow. Right ICA/CCA ratio: Unremarkable. Within normal limits. Left common carotid artery: Minimal atherosclerotic disease. No occlusion or significant stenosis on color flow and spectral Doppler imaging. Left internal carotid artery: Unremarkable. No occlusion or significant stenosis on color flow and spectral Doppler imaging. Left external carotid artery: Unremarkable. No occlusion or significant stenosis on color flow and spectral Doppler imaging. Left vertebral artery: Unremarkable. Antegrade flow. Left ICA/CCA ratio: Unremarkable. Within normal limits. Lymph nodes: Unremarkable. No lymphadenopathy. CAROTID STENOSIS REFERENCE USING SRU CRITERIA: Mild - <50% stenosis. ICA PSV is less than 125 cm/second and plaque or intimal thickening is visible. Moderate - 50-69% stenosis. ICA PSV is 125 to 230 cm/second and plaque is visible. Severe - 70-94% stenosis. ICA PSV is more than 230 cm/second and visible plaque with lumen narrowing is seen. Near occlusion - 95-99% stenosis. ICA PSV is variable and significant plaque with luminal narrowing is seen. Occluded - 100% stenosis. No flow identified. IMPRESSION: Minimal atherosclerotic plaque without evidence of hemodynamically significant stenosis. The vertebral arteries demonstrate antegrade blood flow. Electronically signed by: Debra Soria MD 02/27/24 04:59 AM
[2024-02-27 06:38] LABS: Basophils # (auto) 0.05 K/uL (0.00-0.20); Basophils % (auto) 0.8 %; Eosinophils % (auto) 1.6 %; Hematocrit (blood only) 32.9 % (37.0-47.0); Hemoglobin 10.7 g/dl (12.0-16.0); Immature Granulocytes # (auto) 0.01 K/uL (0.01-0.20); Immature Granulocytes % (auto) 0.2 %; Lymphocytes # (auto) 2.12 K/uL (1.20-3.40); Lymphocytes % (auto) 33.5 %; Mean Corpuscular Hemoglobin 29.6 pg (25.0-34.0); Mean Corpuscular Hgb Conc 32.5 g/dL (32.0-36.0); Mean Corpuscular Volume 91.1 fL (80.0-100.0); Mean Platelet Volume 10.3 fL (9.4-12.4); Monocytes # (auto) 0.52 K/uL (0.11-0.59); Monocytes % (auto) 8.2 %; Neutrophils # (auto) 3.53 K/uL (1.40-6.50); Neutrophils % (auto) 55.7 %; Platelet Count 231 K/uL (130-400); RDW Coefficient of Variation 14.6 % (11.5-14.5); RDW Standard Deviation 49.3 fL (36.4-46.3); Red Blood Count 3.61 M/uL (4.20-5.40); White Blood Count 6.33 K/ul (4.8-10.8)
[2024-02-27 07:14] LABS: BUN Creatinine Ratio 16.9 (10-20); Calcium 8.2 mg/dl (8.6-10.3); Chol HDL Ratio 2.8 (0-5); Creatinine Clr Calc Pharmacy 74.8 ml/min; Magnesium 1.7 mg/dl (1.7-2.4); Potassium 3.4 mmol/L (3.5-5.1)
[2024-02-27] MEDS: ENOXAPARIN INJ 40 MG/0.4 ML SYR SQ SCH (07:56)
[2024-02-27 08:10] LABS: Amphetamines+Metham, Urine Neg (Neg); Barbiturates, Urine Neg (Neg); Benzodiazepine, Urine Neg (Neg); Cocaine, Urine Neg (Neg); Fentanyl, Urine Pos (Neg); MDMA (Ecstacy), Urine Neg (Neg); Marijuana, Urine Neg (Neg); Methadone, Urine Neg (Neg); Opiate, Urine Neg (Neg); Phencyclidine, Urine Neg (Neg)
[2024-02-27] MEDS: POTASSIUM CHLORIDE CRTAB 20 MEQ TABCR PO ONE (09:41)
[2024-02-27] MEDS: THIAMINE HCL 100 MG TAB PO SCH (10:21)
[2024-02-27] MEDS: cefTRIAXone SODIUM 1,000 MG/50 ML BAG IV SCH (10:22)
--- NOTE | 2024-02-27 12:01 | Cardiology Consultation ---
<Statement entered by Wendy Corley, DO - 02/27/24 16:21> I have reviewed the advanced practitioner's documentation and agree with the plan of care. I accept the responsibility for the associated risk. Pt seen in cardiology consultation due to sycnope pt has PMH for HTN on HCTZ and ACEI. She was at the football game yesterday and did have mroe ETOH then usual, less water than usual and fried foods. she started feeling diaphoretic and not well sitting at half time in the sun and then passed out in her chair; EMS at the game did 5 rounds of chest compressions because pulse was reported to be non-palpable but her BP was very low with systolic reported in the 70s. she ruled out for ACS telemetry and ECG are unremarkable i interpreted her echo today which is all normal i think pt had a vasovagal syncope shortly after eating alot of fried food on top of her ETOH intake with little water and taking her HCTZ. I do not think she really needs a neurological work up there is no further in patient cardiac work up or recommendations at this juncture; she can be discharged home from my perspective I discussed the case and my recommendations with the hospitalist over tiger text and he agreed with my plan Date of Consultation February 27, 2024 Assessment & Plan (1) Syncope: (2) Acute hypotension: (3) Hypokalemia: Plan Patient admitted after a syncopal episode. There was concerns for cardiac arrest after no pulse was felt while unconscious. After several compressions patient awakened. Patient was found to be significantly hypotensive. This is likely why her pulse was not palpated well in the field. No incontinence. She had several alcohol beverages without water. Prior to the event she felt hot/overheated and dizziness. Then had sudden flushing sensation. These symptoms are likely related to hypotensive episode causing syncope. Upon admission EKG was normal/non ischemic. HS troponin have been negative. Echo is unremarkable. No arrhythmias on telemetry. Recommend holding/stopping HCTZ. Likely episode was volume depletion/dehydration in the heat. Would consider outpatient youth nutritional monitor when she returns home with her PCP. Further recommendations pending evaluation and discussion with Dr. Corley I spent a total of 60 minutes on the date of service in preparation, delivery, and documentation of the care provided to this patient, excluding any time spent in the performance of separately billed services. Neisha Hair PA-C Department of Cardiology, [facility] This chart was completed in part utilizing Speech Voice Recognition Software. Grammatical errors, random word insertions, pronoun errors, and incomplete sentences are an occasional consequence of this system due to software limitations, ambient noise, and hardware issues. Any formal questions or concerns about the content, text, or information contained within the body of this dictation should be directly addressed to the provider for clarification. History of Present Illness Reason for Consultation: syncope; hypotension; Possible cardiac arrest Requesting Physician: Geovanna Hospitalist Attending Physician: Dr. Corley History of Present Illness Patient is a 68-year-old female who was admitted to [facility] yesterday after she collapsed/had a syncopal episode during the football game. Patient describes feeling developing back pain and feeling hot, flushed, with visual disturbances and passed out. Apparently no pulse was felt at time of collapse and bystanders started CPR for approximately 5-6 compressions. Patient then awakened and was alert post event. No incontinence. EKG demonstrated NSR in the field without acute changes, per review of notes BP was low when EMS was summoned in the s. IV obtained and IV fluids started with improved symptoms. Patient admits to drinking 1 large cocktail in the morning and not a significant amount of water. She takes lisinopril/hctz for BP as outpatient. EKG on arrival to ER Demonstrated normal sinus rhythm with low voltage QRS, otherwise no acute ischemic changes. HS troponin negative x 3 since admission. D.dimer was elevated but no Evidence of PE or DVT on imaging studies. Unfortunately she has sternal fracture from CPR causing pain. No prior cardiac history. At time of consult, patient resting in bed comfortably. No chest pain or unusual shortness of breath. She notes Soreness of her sternum. No pleuritic chest pain. No recurrent dizziness, lightheadedness, syncope or near syncope. Allergies Allergy/AdvReac Type Severity Reaction Status Date / Time Sulfa (Sulfonamide Allergy Hives Verified 02/26/24 16:16 Antibiotics) thimerosal AdvReac Redness of Verified 02/26/24 16:17 Skin Home Medications Medication Instructions Recorded Confirmed Type calcium carbonate (Calcium 600) 600 mg PO DAILY 02/26/24 02/26/24 History hydrochlorothiazide 25 mg tablet 25 mg PO DAILY 02/26/24 02/26/24 History lisinopril 5 mg tablet 5 mg PO DAILY 02/26/24 02/26/24 History pantoprazole 40 mg tablet,delayed 40 mg PO DAILY 02/26/24 02/26/24 History release risedronate 35 mg tablet 35 mg PO WK 02/26/24 02/26/24 History Patient History Medical History Peripheral neuropathy Osteoporosis Hernia, hiatal Hypertension Surgical History History of section Family History Father Stroke Mother Hypertension Social History Smoking Status: Never smoker Hx Alcohol Use: Yes Alcohol type: beer Alcohol Intake Frequency: 2-4 x/Month Hx Substance Use: No Preferred Language: Portuguese Communication Ability: Effective Drill Doctor Required: No Beliefs That Will Affect Care: None Current Living Situation: Alone current occupational status: retired current occupation: retired nurse Feels Safe at Home: Yes Safety Concerns: Feels Safe At This Time Assistive Devices: Contacts Review of Systems Review of Systems: All systems reviewed & are unremarkable except as noted in HPI & below Physical Exam Constitutional: WD/WN, vitals as above no acute distress Neck: trachea midline, no thyromegaly Respiratory: normal respiratory effort, lungs clear to auscultation Cardiovascular: RRR, no murmur, no edema Gastrointestinal (Abdomen): normal bowel sounds, soft, nontender, no hepatosplenomegaly Neurologic: PERRL, EOMI, accommodation nl, no face palsy, no dysarthria Psychiatric: A+Ox3, euthymic affect Results & Data Vital Signs (Past 12 Hours) Vital Signs Temp Pulse Resp BP Pulse Ox O2 Del Method 02/27/24 11:36 36.7 C 69 18 125/84 99 Room Air 02/27/24 07:43 36.3 C L 60 18 121/75 99 Room Air 02/27/24 03:55 36.8 C 74 20 114/63 98 Room Air Laboratory Results Cardiac Enzymes 02/26/24 02/26/24 02/26/24 Range/Units 15:10 19:10 23:17 AST 18 (13-39) U/L Troponin I High Sens 2.9 3.6 4.4 (0-14) pg/ml Coagulation 02/26/24 Range/Units 15:10 PT 10.8 (9.0-12.0) Seconds APTT 20 L (21-31) Seconds Lipids 02/27/24 Range/Units 05:32 Triglycerides 78 (0-150) mg/dl Cholesterol 161 (0-200) mg/dl HDL Cholesterol 57 mg/dl Cholesterol/HDL Ratio 2.8 (0-5) CBC 02/26/24 02/27/24 Range/Units 15:10 05:32 WBC 6.81 6.33 (4.8-10.8) K/ul RBC 4.03 L 3.61 L (4.20-5.40) M/uL Hgb 12.0 10.7 L (12.0-16.0) g/dl Hct 36.6 L 32.9 L (37.0-47.0) % Plt Count 278 231 (130-400) K/uL Neut # (Auto) 3.86 3.53 (1.40-6.50) K/uL Lymph # (Auto) 2.29 2.12 (1.20-3.40) K/uL Wirt # (Auto) 0.51 0.52 (0.11-0.59) K/uL Eos # (Auto) 0.08 0.10 (0.00-0.50) K/uL Baso # (Auto) 0.04 0.05 (0.00-0.20) K/uL Comprehensive Metabolic Panel 02/26/24 02/27/24 Range/Units 15:10 05:32 Sodium 138 141 (136-145) mmol/L Potassium 3.6 3.4 L (3.5-5.1) mmol/L Chloride 106 110 H (98-107) mmol/L Carbon Dioxide 24 26 (21-32) mmol/L BUN 17 12 (6-23) mg/dl Creatinine 1.08 0.71 D (0.6-1.2) mg/dl Glucose 81 93 (70-99(Fasting)) mg/dl Calcium 8.7 8.2 L (8.6-10.3) mg/dl AST 18 (13-39) U/L ALT 12 (7-52) U/L Alkaline Phosphatase 42 (34-104) U/L Total Protein 6.7 (6.0-8.3) gm/dl Albumin 4.0 (3.4-5.0) gm/dl Intake and Output 02/26/24 02/27/24 02/27/24 22:59 06:59 14:59 Intake Total 2400 / 3970 1570 / 3970 100 / 100 Output Total 900 / 2350 1450 / 2350 Balance 1500 / 1620 120 / 1620 100 / 100 Intake: IV 2100 / 3200 1100 / 3200 100 / 100 Acetaminophen 1,000 mg In 100 100 / 200 100 / 200 100 / 100 ml @ 400 mls/hr IV Q8H [facility] Rx#: [id number] Sodium Chloride 0.9% 1,000 ml @ 2000 / 3000 1000 / 3000 125 mls/hr IV .Q8H LOLITA Rx#: [id number] Oral 300 / 770 470 / 770 Output: Urine 900 / 2350 1450 / 2350 Other: # Unmeasured Voids 1 2 Weight 71.4 kg 69.9 kg Weight Measurement Method Standing Scale Built in [facility] Diagnostic Findings Telemetry reviewed: NSR in the 60-80's. no arrhythmias EKG reviewed from admission dated 02/26/24 at 15:04 AM NSR, low voltage QRS No acute ischemic changes Repeat EKG reviewed from today, 02/27/24 at 11:38 AM NSR, low voltage QRS No acute ischemic changes Echo 02/27/24: Normal LV systolic function with ejection fraction 55 to 60%. No wall motion abnormalities. No significant valvular pathology. Chest X-Ray 02/26/24 15:04 FINDINGS: There is no pneumothorax or pleural effusion. No consolidation is present. Pulmonary vascularity is normal. There is a large hiatal hernia. Cardiac size is likely normal. IMPRESSION: 1. No acute cardiopulmonary findings. 2. Large hiatal hernia. Chest CTA 02/26/24 16:15 IMPRESSION: 1. No pulmonary emboli identified. 2. Acute nondisplaced sternal fracture. 3. Large hiatal hernia with partially intrathoracic stomach. Intrathoracic portion of the stomach distended with fluid and ingested contents. Mild dilatation of the esophagus. Head CT 02/26/24 17:28 IMPRESSION: No evidence of acute intracranial pathology. Electronically signed by: Debra Soria MD 02/27/24 04:37 AM Carotid Doppler Study 02/26/24 17:40 IMPRESSION: Minimal atherosclerotic plaque without evidence of hemodynamically significant stenosis. The vertebral arteries demonstrate antegrade blood flow. Venous Doppler Study 02/26/24 17:40 IMPRESSION: No evidence of DVT in the lower extremities. Medications Administered Current Inpatient Medications Enoxaparin Sodium (Enoxaparin Inj 40 Mg/0.4 Ml Syr) 40 mg SQ QAM LOLITA Stop: 03/28/24 08:59 Last Admin: 02/27/24 07:56 Dose: 40 mg Sodium Chloride (Nss) 1,000 mls @ 125 mls/hr IV .Q8H [facility] Stop: 03/27/24 17:44 Last Admin: 02/27/24 03:58 Dose: 125 mls/hr Acetaminophen (Ofirmev) 1,000 mg in 100 mls @ 400 mls/hr IV Q8H [facility] Stop: 02/29/24 17:59 Last Infusion: 02/27/24 10:12 Dose: Infused Pantoprazole Sodium 40 mg/ (Syringe) 10 mls @ 5 mls/min IV DAILY@1100 [facility] Stop: 03/27/24 18:30 Last Admin: 02/27/24 11:33 Dose: 5 mls/min Ceftriaxone Sodium (Rocephin) 1,000 mg in 50 mls @ 100 mls/hr IV Q24H [facility] Stop: 03/03/24 08:59 Last Admin: 02/27/24 10:22 Dose: 100 mls/hr Ketorolac Tromethamine (Ketorolac Tromethamine 15 Mg/Ml Vial) 15 mg IV Q6H PRN PRN Reason: Pain Stop: 03/02/24 17:43 Lidocaine (Lidocaine 5% 1 Patch) 1 patch TD 1800 [facility] Stop: 03/27/24 17:59 Last Admin: 02/26/24 21:23 Dose: 1 patch Miscellaneous (Remove Lidoderm Patch) 1 each N/A DAILY@0600 [facility] Stop: 03/28/24 05:59 Last Admin: 02/27/24 06:25 Dose: 1 each Thiamine HCl (Thiamine Hcl 100 Mg Tab) 100 mg PO QAM [facility]ITA Stop: 03/28/24 08:59 Last Admin: 02/27/24 10:21 Dose: 100 mg (1) Syncope Syncope type: unspecified Qualified Code(s): R55 - Syncope and collapse
--- NOTE | 2024-02-27 13:51 | Electrocardiogram Report ---
Test Reason : Blood Pressure : */* mmHG Vent. Rate : 68 BPM Atrial Rate : 68 BPM P-R Int : 138 ms QRS Dur : 92 ms QT Int : 404 ms P-R-T Axes : 2 -10 -8 degrees QTcB Int : 429 ms Normal sinus rhythm Low voltage QRS Borderline ECG When compared with ECG of 26-Feb-2024 15:04, (unconfirmed) No significant change was found Confirmed by Desmond Lozano ([id number]) on 02/27/2024 1:50:40 PM Referred By: REFERRED SELF Confirmed By: Desmond Lozano
--- NOTE | 2024-02-27 14:25 | Electrocardiogram Report ---
Test Reason : Blood Pressure : */* mmHG Vent. Rate : 71 BPM Atrial Rate : 71 BPM P-R Int : 164 ms QRS Dur : 96 ms QT Int : 406 ms P-R-T Axes : 39 24 10 degrees QTcB Int : 441 ms Normal sinus rhythm Low voltage QRS Incomplete right bundle branch block Borderline ECG No previous ECGs available Confirmed by Desmond Lozano ([id number]) on 02/27/2024 2:25:11 PM Referred By: Confirmed By: Desmond Lozano
--- NOTE | 2024-02-27 14:45 | Hospitalist Progress Note ---
Date of Service February 27, 2024 Assessment & Plan (1) Cardiac arrest with successful resuscitation: Plan: Patient is a 68 y/o female with history of hypertension, acid reflux, and osteoporosis who presented to the ED today via EMS after [place] cardiac arrest [place] the [place] [employer] [place]. CPR was initiated and pt became responsive again within 5-6 compressions. Post-resuscitation she notes chest pain but this is likely secondary to sternal fracture noted on work-up in the ED. Her initial BP in the field was 70s systolic. She has received 2600 cc of IVF to this point with improvement in her BPs although still low to low-normal with systolic in the 90s to 100s. Initial troponin was negative, no acute EKG changes to indicate STEMI. D-dimer was elevated so CTA of the chest was done and is negative for PE and thoracic aortic dissection. Electrolytes without significant abnormality. Due to unclear etiology of the cardiac arrest and persistently low BPs, pt was referred for admission for further work-up. Differential of symptoms include severe hypotension due to dehydration (diuretic, EtOH), syncope, stroke, seizure, heat stroke, or evolving cardiac event. Syncope Suspected Cardiac Arrest Likely due to hypotension Reports having syncopal episode many years ago and admits to having minimal palpitations intermittently --CT head:No evidence of acute intracranial pathology. --Carotid USD:Minimal atherosclerotic plaque without evidence of hemodynamically significant stenosis. The vertebral arteries demonstrate antegrade blood flow. --ECHO: Normal LV systolic function EF 55 to 60%. Known dilated cardiac chambers. No significant valvular pathology. --Tox Screen: Negative (+ Fentanyl as patient received Fentanyl Enroute to the hospital ) ----EEG pending -- Monitor on telemetry to rule out arrhythmias --May benefit from ZIO monitor as outpatient Appreciate cardiology input Sternal fracture Likely due to CPR done prior to arrival to ED --CT:Acute nondisplaced sternal fracture. Pain control Incentive spirometer Fall precautions Elevated D-dimer --CTA:No pulmonary emboli identified. --Venous Doppler:No evidence of DVT in the lower extremities. Hypokalemia Replete electrolytes as needed Monitor Possible UTI Urine culture growing gram-negative bacilli Empirically on IV Rocephin Abnormal thyroid function Elevated TSH, normal free T4 Needs repeat thyroid function test as outpatient (2) Acute hypotension: Plan: Hold lisinopril, diuretic Continue IV fluids Blood pressure better Monitor BP (3) Sternal fracture: Plan: Management as above (4) GERD (gastroesophageal reflux disease): Plan: Large hiatal hernia seen on CT with portion of stomach intrathoracic - will need f/u as outpatient. Continue pantoprazole Plan DVT Px: Lovenox SQ Code status: Full Code Admission and Anticipated Discharge Date Admission Date: February 26, 2024 Subjective Patient is seen and examined at bedside Chest pain improved Denies any dyspnea, nausea, vomiting, abdominal pain, dizziness, dysuria, hematuria Family at bedside Offers no other complaints Review of Systems Review of Systems: All systems reviewed & are unremarkable except as noted in Subjective Physical Exam Physical Exam: Physical Exam: Vitals signs as noted above General Appearance:Moderately built and nourished, no apparent distress Head: normocephalic, Atraumatic Eyes: normal inspection, EOMI Neck: supple, Trachea midline Respiratory/Chest: Normal breath sounds, CTA,+sternal tenderness, No accessory muscle use Cardiovascular: S1, S2, No murmur Abdomen/GI:Soft, Non tender, Bowel sounds present Extremities/Musculoskeletal:normal inspection, no edema Neurologic/Psych:AAOX3, grossly no focal neurological deficits Skin: normal color, warm Results & Data Results & Data Vital Signs (Past 12 Hours) Vital Signs Temp Pulse Resp BP Pulse Ox O2 Del Method 02/27/24 11:36 36.7 C 69 18 125/84 99 Room Air 02/27/24 07:43 36.3 C L 60 18 121/75 99 Room Air 02/27/24 03:55 36.8 C 74 20 114/63 98 Room Air Laboratory Results Short CBC 02/26/24 02/27/24 Range/Units 15:10 05:32 WBC 6.81 6.33 (4.8-10.8) K/ul Hgb 12.0 10.7 L (12.0-16.0) g/dl Hct 36.6 L 32.9 L (37.0-47.0) % Plt Count 278 231 (130-400) K/uL BMP 02/26/24 02/27/24 15:10 05:32 Sodium 138 141 Potassium 3.6 3.4 L Chloride 106 110 H Carbon Dioxide 24 26 BUN 17 12 Creatinine 1.08 0.71 D Glucose 81 93 Calcium 8.7 8.2 L Cardiac Enzymes 02/26/24 02/27/24 Range/Units 15:10 05:32 Total Creatine Kinase 79 60 (26-192) U/L Liver Function 02/26/24 Range/Units 15:10 Total Bilirubin 0.4 (0.2-1.0) mg/dl AST 18 (13-39) U/L ALT 12 (7-52) U/L Alkaline Phosphatase 42 (34-104) U/L Albumin 4.0 (3.4-5.0) gm/dl Urine 02/26/24 Range/Units 17:55 Urine Color Yellow Urine Appearance Clear (Clear) Urine pH 6.5 (4.5-7.5) Ur Specific Allen 1.025 (1.000-1.030) Urine Protein Negative (Negative) Urine Glucose (UA) Negative (Negative) (3) Sternal fracture Encounter type: initial encounter Fracture type: closed Sternal location: unspecified Qualified Code(s): S22.20XA - Unspecified fracture of sternum, initial encounter for closed fracture (4) GERD (gastroesophageal reflux disease) Esophagitis presence: esophagitis presence not specified Qualified Code(s): K21.9 - Gastro-esophageal reflux disease without esophagitis
[2024-02-28 03:59] VITALS: RESP 18
[2024-02-28 06:12] LABS: Hematocrit (blood only) 31.6 % (37.0-47.0); Hemoglobin 10.5 g/dl (12.0-16.0); Mean Corpuscular Hemoglobin 29.8 pg (25.0-34.0); Mean Corpuscular Hgb Conc 33.2 g/dL (32.0-36.0); Mean Corpuscular Volume 89.8 fL (80.0-100.0); Platelet Count 227 K/uL (130-400); RDW Coefficient of Variation 14.6 % (11.5-14.5); Red Blood Count 3.52 M/uL (4.20-5.40); White Blood Count 5.31 K/ul (4.8-10.8)
[2024-02-28 06:30] LABS: BUN Creatinine Ratio 15.3 (10-20); Calcium 8.6 mg/dl (8.6-10.3); Creatinine Clr Calc Pharmacy 89.8 ml/min; Magnesium 1.7 mg/dl (1.7-2.4); Potassium 3.7 mmol/L (3.5-5.1)
--- NOTE | 2024-02-28 11:20 | Hospitalist Progress Note ---
Date of Service February 28, 2024 Assessment & Plan (1) Cardiac arrest with successful resuscitation: Plan: Patient is a 68 y/o female with history of hypertension, acid reflux, and osteoporosis who presented to the ED today via EMS [place] cardiac [place] the [place] [employer] [place]. CPR was initiated and pt became responsive again within 5-6 compressions. Post-resuscitation she notes chest pain but this is likely secondary to sternal fracture noted on work-up in the ED. Her initial BP in the field was 70s systolic. She has received 2600 cc of IVF to this point with improvement in her BPs although still low to low-normal with systolic in the 90s to 100s. Initial troponin was negative, no acute EKG changes to indicate STEMI. D-dimer was elevated so CTA of the chest was done and is negative for PE and thoracic aortic dissection. Electrolytes without significant abnormality. Due to unclear etiology of the cardiac arrest and persistently low BPs, pt was referred for admission for further work-up. Differential of symptoms include severe hypotension due to dehydration (diuretic, EtOH), syncope, stroke, seizure, heat stroke, or evolving cardiac event. Syncope Suspected Cardiac Arrest Likely due to hypotension/vasovagal Reports having syncopal episode many years ago and admits to having minimal palpitations intermittently --CT head:No evidence of acute intracranial pathology. --Carotid USD:Minimal atherosclerotic plaque without evidence of hemodynamically significant stenosis. The vertebral arteries demonstrate antegrade blood flow. --ECHO: Normal LV systolic function EF 55 to 60%. Known dilated cardiac chambers. No significant valvular pathology. --Tox Screen: Negative (+ Fentanyl as patient received Fentanyl Enroute to the hospital ) ----EEG pending -- Monitor on telemetry to rule out arrhythmias --May benefit from ZIO monitor as outpatient Appreciate cardiology input Plan to be discharged home today Sternal fracture Likely due to CPR done prior to arrival to ED --CT:Acute nondisplaced sternal fracture. Pain control Incentive spirometer Fall precautions Pain is controlled Elevated D-dimer --CTA:No pulmonary emboli identified. --Venous Doppler:No evidence of DVT in the lower extremities. Hypokalemia Replete electrolytes as needed Monitor UTI--POA Urine culture grew: Klebsiella Empirically on IV Rocephin Transition to oral antibiotics to complete the course Abnormal thyroid function Elevated TSH, normal free T4 Needs repeat thyroid function test as outpatient (2) Acute hypotension: Plan: Hold lisinopril, diuretic Received IV fluids Blood pressure better Monitor BP (3) Sternal fracture: Plan: Management as above (4) GERD (gastroesophageal reflux disease): Plan: Large hiatal hernia seen on CT with portion of stomach intrathoracic - will need f/u as outpatient. Continue pantoprazole Plan DVT Px: Lovenox SQ Code status: Full Code Disposition Home Admission and Anticipated Discharge Date Admission Date: February 26, 2024 Subjective Patient is seen and examined at bedside Feels a lot better today Sternal pain much improved No new complaints today Denies any dyspnea, nausea, vomiting, abdominal pain, dizziness Family at bedside Plan to be discharged home today Review of Systems Review of Systems: All systems reviewed & are unremarkable except as noted in Subjective Physical Exam Physical Exam: Physical Exam: Vitals signs as noted above General Appearance:Moderately built and nourished, no apparent distress Head: normocephalic, Atraumatic Eyes: normal inspection, EOMI Neck: supple, Trachea midline Respiratory/Chest: Normal breath sounds, CTA,+sternal tenderness, No accessory muscle use Cardiovascular: S1, S2, No murmur Abdomen/GI:Soft, Non tender, Bowel sounds present Extremities/Musculoskeletal:normal inspection, no edema Neurologic/Psych:AAOX3, grossly no focal neurological deficits Skin: normal color, warm Results & Data Results & Data Vital Signs (Past 12 Hours) Vital Signs Temp Pulse Pulse Resp BP Pulse Ox O2 Del Method 02/28/24 09:38 Room Air 02/28/24 07:26 74 02/28/24 07:22 36.6 C 57 L 18 122/80 98 Room Air 02/28/24 03:56 36.4 C L 60 18 152/95 H 99 Room Air Laboratory Results Short CBC 02/28/24 Range/Units 05:52 WBC 5.31 (4.8-10.8) K/ul Hgb 10.5 L (12.0-16.0) g/dl Hct 31.6 L (37.0-47.0) % Plt Count 227 (130-400) K/uL BMP 02/28/24 05:52 Sodium 141 Potassium 3.7 Chloride 111 H Carbon Dioxide 26 BUN 9 Creatinine 0.59 L Glucose 92 Calcium 8.6 (3) Sternal fracture Encounter type: initial encounter Fracture type: closed Sternal location: unspecified Qualified Code(s): S22.20XA - Unspecified fracture of sternum, initial encounter for closed fracture (4) GERD (gastroesophageal reflux disease) Esophagitis presence: esophagitis presence not specified Qualified Code(s): K21.9 - Gastro-esophageal reflux disease without esophagitis
--- NOTE | 2024-02-28 11:58 | Discharge Summary ---
Date of Service February 28, 2024 Admission HPI Per Admitting Provider This is a 68 y/o female with history of hypertension, acid reflux, and osteoporosis who presented to the ED today via EMS after [place] cardiac arrest [place] the [place] [employer] [place]. History obtained from both the patient and her significant other at the bedside. He reports that patient seemed to be herself at half-time when they went to get something to eat (sausage sandwich, chicken tenders) and had an alcoholic drink. After eating, she developed severe mid to upper back pain after eating. Initially, she attributed this to heartburn. Then started to feel like her vision was "silvery" and decreased so she told her significant other that they needed to get out of the sun because she was starting to feel warm. Tried drinking some water but continued to feel poorly. Her significant other noted she was diaphoretic and called for help. By the time EMS arrived, she was unresponsive. She was also noted to have perioral cyanosis and did not appear to be breathing, which was confirmed by a bystander. EMS notes were reviewed. Pt was unresponsive and pulse was unable to be obtained so CPR initiated. Within 5-6 compressions, pt became responsive but was hypotensive with systolic BP in the 70s. IV access obtained and pt given 600 ml of IVF pre-hospital. In the ED, she has received an additional 2L of IVF but BPs have remained low to low-normal. Pt denies feeling dizzy but has limited recollection of the events until she became aware of someone performing chest compressions on her. She denies dyspnea, palpitations. No history of similar symptoms or syncopal episodes. She is complaining of her fingers currently feeling numb and tingling in the tips bilaterally. Feels overall weak and tired. Having chest pain but work-up in the ED reveals a sternal fracture, likely related to CPR. Principal Diagnosis Syncope Suspected Cardiac Arrest Urinary tract infection Sternal fracture Hypokalemia Abnormal thyroid function test Hypertension Discharge Exam VS noted and reviewed General- oriented x 3, not in distress, speaks in sentences with no effort or accessory muscle use Head- atraumatic Eyes- PERRL, EOMI, anicteric ENT- oropharynx clear Neck- supple, no JVD, no adenopathy, no thyromegaly; carotids +2/2, no bruits appreciated Lungs- clear to auscultation bilaterally, no rales/wheezes Heart- normal rate, regular rhythm; no murmur, no gallop, no rub appreciated (+) mild erythema and tenderness on the left chest wall area Abdomen- normal bowel sounds, nondistended, soft, nontender, no masses or hepatosplenomegaly Extremities- no pretibial edema, no calf tenderness; peripheral pulses intact Neuro- alert, oriented x 3; CN 2-12 grossly intact; motor 5/5 luisa aterally;sensation 100% on all extremities; no other gross focal neurologic deficits Skin- warm & dry Back- unremarkable Discharge Data Allergies Allergy/AdvReac Type Severity Reaction Status Date / Time Sulfa (Sulfonamide Allergy Hives Verified 02/26/24 16:16 Antibiotics) thimerosal AdvReac Redness of Verified 02/26/24 16:17 Skin Consultations 02/26/24 17:10 ED Decision to Admit Stat 02/27/24 07:13 Consult Cardiology Routine Procedures Performed Laboratory Results WBC 5.31 K/ul (4.8-10.8) 02/28/24 05:52 RBC 3.52 M/uL (4.20-5.40) L 02/28/24 05:52 Hgb 10.5 g/dl (12.0-16.0) L 02/28/24 05:52 POC Hgb 12.6 g/dl (12.0-16.0) 02/26/24 15:18 Hct 31.6 % (37.0-47.0) L 02/28/24 05:52 POC Hct 37 % (37-47) 02/26/24 15:18 MCV 89.8 fL (80.0-100.0) 02/28/24 05:52 MCH 29.8 pg (25.0-34.0) 02/28/24 05:52 MCHC 33.2 g/dL (32.0-36.0) 02/28/24 05:52 RDW Std Deviation 48.0 fL (36.4-46.3) H 02/28/24 05:52 RDW Coeff of Patrick 14.6 % (11.5-14.5) H 02/28/24 05:52 Plt Count 227 K/uL (130-400) 02/28/24 05:52 MPV 10.0 fL (9.4-12.4) 02/28/24 05:52 Immature Gran % (Auto) 0.2 % 02/27/24 05:32 Neut % (Auto) 55.7 % 02/27/24 05:32 Lymph % (Auto) 33.5 % 02/27/24 05:32 Bryan % (Auto) 8.2 % 02/27/24 05:32 Eos % (Auto) 1.6 % 02/27/24 05:32 Baso % (Auto) 0.8 % 02/27/24 05:32 Neut # (Auto) 3.53 K/uL (1.40-6.50) 02/27/24 05:32 Lymph # (Auto) 2.12 K/uL (1.20-3.40) 02/27/24 05:32 Bryan # (Auto) 0.52 K/uL (0.11-0.59) 02/27/24 05:32 Eos # (Auto) 0.10 K/uL (0.00-0.50) 02/27/24 05:32 Baso # (Auto) 0.05 K/uL (0.00-0.20) 02/27/24 05:32 Immature Gran # (Auto) 0.01 K/uL (0.01-0.20) 02/27/24 05:32 PT 10.8 Seconds (9.0-12.0) 02/26/24 15:10 INR 1.0 (0.9-1.1) 02/26/24 15:10 APTT 20 Seconds (21-31) L 02/26/24 15:10 PTT Ratio 0.7 02/26/24 15:10 D-Dimer 1100 ug/L FEU (0-500) H* 02/26/24 15:10 POC Sodium 139 mmol/L (135-144) 02/26/24 15:18 Sodium 141 mmol/L (136-145) 02/28/24 05:52 POC Potassium 4.1 mmol/L (3.3-5.0) 02/26/24 15:18 Potassium 3.7 mmol/L (3.5-5.1) 02/28/24 05:52 POC Chloride 104 mmol/L (101-112) 02/26/24 15:18 Chloride 111 mmol/L (98-107) H 02/28/24 05:52 Carbon Dioxide 26 mmol/L (21-32) 02/28/24 05:52 POC Total CO2 24 mmol/L (24-31) 02/26/24 15:18 Anion Gap 4 (3-11) 02/28/24 05:52 POC Anion Gap 16.0 mmol/L (16-25) 02/26/24 15:18 POC BUN 20 mg/dl (7-18) H 02/26/24 15:18 BUN 9 mg/dl (6-23) 02/28/24 05:52 Creatinine 0.59 mg/dl (0.6-1.2) L 02/28/24 05:52 POC Creatinine 1.2 mg/dl (0.6-1.3) 02/26/24 15:18 Est Cr Clr Drug Dosing 89.8 ml/min 02/28/24 05:52 eGFR 99.33 02/28/24 05:52 BUN/Creatinine Ratio 15.3 (10-20) 02/28/24 05:52 Glucose 92 mg/dl (70-99(Fasting)) 02/28/24 05:52 POC Glucose (other) 83 mg/dl (70-99) 02/26/24 15:18 Calcium 8.6 mg/dl (8.6-10.3) 02/28/24 05:52 POC Ioniz Calcium Peace 1.10 mmol/l (1.12-1.32) L 02/26/24 15:18 Magnesium 1.7 mg/dl (1.7-2.4) 02/28/24 05:52 Total Bilirubin 0.4 mg/dl (0.2-1.0) 02/26/24 15:10 AST 18 U/L (13-39) 02/26/24 15:10 ALT 12 U/L (7-52) 02/26/24 15:10 Alkaline Phosphatase 42 U/L (34-104) 02/26/24 15:10 Total Creatine Kinase 60 U/L (26-192) 02/27/24 05:32 Troponin I High Sens 4.4 pg/ml (0-14) 02/26/24 23:17 Total Protein 6.7 gm/dl (6.0-8.3) 02/26/24 15:10 Albumin 4.0 gm/dl (3.4-5.0) 02/26/24 15:10 Globulin 2.7 gm/dl (2.5-4.0) 02/26/24 15:10 Albumin/Globulin Ratio 1.5 (0.9-2) 02/26/24 15:10 Triglycerides 78 mg/dl (0-150) 02/27/24 05:32 Cholesterol 161 mg/dl (0-200) 02/27/24 05:32 LDL Cholesterol, Calc 88 mg/dl 02/27/24 05:32 VLDL Cholesterol, Calc 16 mg/dl (0-30) 02/27/24 05:32 HDL Cholesterol 57 mg/dl 02/27/24 05:32 Cholesterol/HDL Ratio 2.8 (0-5) 02/27/24 05:32 Lipase 19 U/L (11-82) 02/26/24 15:10 TSH 7.214 uIu/ml (0.300-4.500) H 02/26/24 15:10 Free T4 0.86 ng/dl (0.61-1.60) 02/26/24 15:10 Urine Color Yellow 02/26/24 17:55 Urine Appearance Clear (Clear) 02/26/24 17:55 Urine pH 6.5 (4.5-7.5) 02/26/24 17:55 Ur Specific Harrod 1.025 (1.000-1.030) 02/26/24 17:55 Urine Protein Negative (Negative) 02/26/24 17:55 Urine Glucose (UA) Negative (Negative) 02/26/24 17:55 Urine Ketones Negative (Negative) 02/26/24 17:55 Urine Blood Negative (Negative) 02/26/24 17:55 Urine Nitrite Positive (Negative) A 02/26/24 17:55 Urine Bilirubin Negative (Negative) 02/26/24 17:55 Urine Urobilinogen Negative (Negative) 02/26/24 17:55 Ur Leukocyte Esterase Trace (Negative) H 02/26/24 17:55 Urine WBC (Auto) 0-5 /hpf (0-5) 02/26/24 17:55 Urine RBC (Auto) 0-2 /hpf (0-2) 02/26/24 17:55 U Hyaline Cast (Auto) 3-5 /lpf (0-2) H 02/26/24 17:55 U Epithel Cells (Auto) 0-2 /hpf (0-2) 02/26/24 17:55 Urine Bacteria (Auto) 4+ (None Seen) H 02/26/24 17:55 Urine Opiates Screen Neg (Neg) 02/27/24 06:30 Ur Methadone, Qual Neg (Neg) 02/27/24 06:30 Urine Fentanyl Screen Pos (Neg) H 02/27/24 06:30 Urine Barbiturates Neg (Neg) 02/27/24 06:30 Ur Phencyclidine (PCP) Neg (Neg) 02/27/24 06:30 U Amphetamin/Meth Scrn Neg (Neg) 02/27/24 06:30 MDMA (Ecstasy) Screen Neg (Neg) 02/27/24 06:30 U Benzodiazepines Scrn Neg (Neg) 02/27/24 06:30 Ur Cocaine Metabolite Neg (Neg) 02/27/24 06:30 U Marijuana (THC) Screen Neg (Neg) 02/27/24 06:30 Ethyl Alcohol mg/dL 45.2 mg/dl (<10.0) H 02/26/24 15:10 Impressions Chest X-Ray 02/26/24 15:04 XR chest 1V portable CLINICAL HISTORY: Syncope. COMPARISON STUDY: No previous studies for comparison. FINDINGS: There is no pneumothorax or pleural effusion. No consolidation is present. Pulmonary vascularity is normal. There is a large hiatal hernia. Cardiac size is likely normal. IMPRESSION: 1. No acute cardiopulmonary findings. 2. Large hiatal hernia. ACT 112: Negative or not required by law. Electronically signed by: Blaise Thao M.D. 02/26/2024 3:23 PM Chest CTA 02/26/24 16:15 CT ANGIOGRAPHY OF THE CHEST, PULMONARY EMBOLUS PROTOCOL CLINICAL HISTORY: Chest pain. Diaphoretic. Evaluate for pulmonary embolus. COMPARISON STUDY: Chest radiograph performed earlier today. TECHNIQUE: Following IV administration of 119 mL of Optiray, helical axial images of the chest were obtained utilizing the pulmonary embolus protocol. Maximal intensity projections and sagittal and coronal reformats were viewed on an independent 3D workstation. IV contrast was administered without complication. Automated exposure control was utilized for the study. A dose lowering technique was utilized adhering to the principles of ALARA. CT DOSE: 420.41 mGy.cm FINDINGS: No pulmonary emboli are identified. There is no thoracic aortic dissection. Size of the heart is normal. There is a large hiatal hernia with partially intrathoracic stomach. Of note, the intrathoracic portion of the stomach is distended with fluid and ingested contents. There is mild dilatation of the esophagus. No pneumothorax or pleural effusion is present. There is no consolidation to suggest pneumonia. A few small nodules within the lungs are likely benign. There are no suspicious pulmonary nodules. Subtle indentation of the anterior cortex of the sternum suggests an acute nondisplaced fracture. No additional fractures within the bony thorax are identified. A water attenuation 1.3 cm segment 7 hepatic lesion represents a cyst. There is no thoracic lymphadenopathy. There is no thoracic spine fractures. IMPRESSION: 1. No pulmonary emboli identified. 2. Acute nondisplaced sternal fracture. 3. Large hiatal hernia with partially intrathoracic stomach. Intrathoracic portion of the stomach distended with fluid and ingested contents. Mild dilatation of the esophagus. ACT 112: Negative or not required by law. Electronically signed by: Blaise Thao M.D. 02/26/2024 4:[address] 02/26/24 17:28 Exam(s): CT HEAD Without Contrast EXAM: CT Head Without Intravenous Contrast CLINICAL HISTORY: Reason for exam: syncope. TECHNIQUE: Axial computed tomography images of the head/brain without intravenous contrast. Automated exposure control was utilized for the study. A dose lowering technique was utilized adhering to the principles of ALARA. COMPARISON: No relevant prior studies available. FINDINGS: Brain: Unremarkable. No hemorrhage. No significant white matter disease. No edema. Ventricles: Unremarkable. No ventriculomegaly. Bones/joints: Unremarkable. No acute fracture. Soft tissues: Unremarkable. Sinuses: Unremarkable as visualized. No acute sinusitis. Mastoid air cells: Unremarkable as visualized. No mastoid effusion. IMPRESSION: No evidence of acute intracranial pathology. Electronically signed by: Debra Soria MD 02/27/24 04:37 AM Carotid Doppler Study 02/26/24 17:40 Exam(s): US CAROTID EXAM: US Duplex Bilateral Extracranial Arteries CLINICAL HISTORY: Reason for exam: cardiac arrest vs. syncope. TECHNIQUE: Real-time duplex ultrasound scan of the extracranial arteries integrating B-mode two-dimensional vascular structure, Doppler spectral analysis and color flow Doppler imaging. COMPARISON: No relevant prior studies available. FINDINGS: Right common carotid artery: Minimal atherosclerotic disease. No occlusion or significant stenosis on color flow and spectral Doppler imaging. Right internal carotid artery: Unremarkable. No occlusion or significant stenosis on color flow and spectral Doppler imaging. Right external carotid artery: Unremarkable. No occlusion or significant stenosis on color flow and spectral Doppler imaging. Right vertebral artery: Unremarkable. Antegrade flow. Right ICA/CCA ratio: Unremarkable. Within normal limits. Left common carotid artery: Minimal atherosclerotic disease. No occlusion or significant stenosis on color flow and spectral Doppler imaging. Left internal carotid artery: Unremarkable. No occlusion or significant stenosis on color flow and spectral Doppler imaging. Left external carotid artery: Unremarkable. No occlusion or significant stenosis on color flow and spectral Doppler imaging. Left vertebral artery: Unremarkable. Antegrade flow. Left ICA/CCA ratio: Unremarkable. Within normal limits. Lymph nodes: Unremarkable. No lymphadenopathy. CAROTID STENOSIS REFERENCE USING SRU CRITERIA: Mild - <50% stenosis. ICA PSV is less than 125 cm/second and plaque or intimal thickening is visible. Moderate - 50-69% stenosis. ICA PSV is 125 to 230 cm/second and plaque is visible. Severe - 70-94% stenosis. ICA PSV is more than 230 cm/second and visible plaque with lumen narrowing is seen. Near occlusion - 95-99% stenosis. ICA PSV is variable and significant plaque with luminal narrowing is seen. Occluded - 100% stenosis. No flow identified. IMPRESSION: Minimal atherosclerotic plaque without evidence of hemodynamically significant stenosis. The vertebral arteries demonstrate antegrade blood flow. Electronically signed by: Debra Soria MD 02/27/24 04:59 AM Venous Doppler Study 02/26/24 17:40 Exam(s): US VENOUS BILATERAL LOWER EXTREMITIES EXAM: US Duplex Bilateral Lower Extremities Veins CLINICAL HISTORY: Reason for exam: cardiac arrest. TECHNIQUE: Real-time duplex ultrasound scan of the bilateral lower extremity veins integrating B-mode two-dimensional vascular structure, Doppler spectral analysis, color flow Doppler imaging and compression. COMPARISON: No relevant prior studies available. FINDINGS: Right deep veins: Unremarkable. No DVT in the right common femoral, femoral, proximal deep femoral or popliteal veins. The veins demonstrate normal color flow, are normally compressible, with normal phasic flow and/or augmentation response. Right superficial veins: Unremarkable. No thrombus in the visualized right great saphenous vein. Left deep veins: Unremarkable. No DVT in the left common femoral, femoral, proximal deep femoral or popliteal veins. The veins demonstrate normal color flow, are normally compressible, with normal phasic flow and/or augmentation response. Left superficial veins: Unremarkable. No thrombus in the visualized left great saphenous vein. Soft tissues: No acute findings. No popliteal cyst. IMPRESSION: No evidence of DVT in the lower extremities. Electronically signed by: Titus Auguste MD 02/27/24 04:59 AM Ordered Studies 02/26/24 16:15 CT angio chest PE protocol Stat 02/26/24 17:28 CT head/brain wo con Stat 02/26/24 17:40 Carotid duplex [US carotid doppler BI] Urgent US venous duplex leg [US venous doppler LE BI] Urgent Hospital Course (1) Cardiac arrest with successful resuscitation: Patient is a 68 y/o female with history of hypertension, acid reflux, and osteoporosis who presented to the ED today via EMS [place] cardiac arrest [place] the [place] [employer] [place]. CPR was initiated and pt became responsive again within 5-6 compressions. Post-resuscitation she notes chest pain but this is likely secondary to sternal fracture noted on work-up in the ED. Her initial BP in the field was 70s systolic. She has received 2600 cc of IVF to this point with improvement in her BPs although still low to low-normal with systolic in the 90s to 100s. Initial troponin was negative, no acute EKG changes to indicate STEMI. D-dimer was elevated so CTA of the chest was done and is negative for PE and thoracic aortic dissection. Electrolytes without significant abnormality. Due to unclear etiology of the cardiac arrest and persistently low BPs, pt was referred for admission for further work-up. Differential of symptoms include severe hypotension due to dehydration (diuretic, EtOH), syncope, stroke, seizure, heat stroke, or evolving cardiac event. Syncope Suspected Cardiac Arrest Likely due to hypotension/vasovagal Reports having syncopal episode many years ago and admits to having minimal palpitations intermittently --CT head:No evidence of acute intracranial pathology. --Carotid USD:Minimal atherosclerotic plaque without evidence of hemodynamically significant stenosis. The vertebral arteries demonstrate antegrade blood flow. --ECHO: Normal LV systolic function EF 55 to 60%. Known dilated cardiac chambers. No significant valvular pathology. --Tox Screen: Negative (+ Fentanyl as patient received Fentanyl Enroute to the hospital ) ----EEG pending -- Monitor on telemetry to rule out arrhythmias --May benefit from ZIO monitor as outpatient Appreciate cardiology input Plan to be discharged home today Sternal fracture Likely due to CPR done prior to arrival to ED --CT:Acute nondisplaced sternal fracture. Pain control Incentive spirometer Fall precautions Pain is controlled Elevated D-dimer --CTA:No pulmonary emboli identified. --Venous Doppler:No evidence of DVT in the lower extremities. Hypokalemia Replete electrolytes as needed Monitor UTI--POA Urine culture grew: Klebsiella Empirically on IV Rocephin Transition to oral antibiotics to complete the course Abnormal thyroid function Elevated TSH, normal free T4 Needs repeat thyroid function test as outpatient (2) Acute hypotension: Hold lisinopril, diuretic Received IV fluids Blood pressure better Monitor BP (3) Sternal fracture: Management as above (4) GERD (gastroesophageal reflux disease): Large hiatal hernia seen on CT with portion of stomach intrathoracic - will need f/u as outpatient. Continue pantoprazole Plan DVT Px: Lovenox SQ Code status: Full Code Disposition Home Total Time Total Time Spent Total Time Spent (In Minutes): 43 minutes Discharge Plan Discharge Items Patient Disposition: Home - Self-Care Reason For Visit: CARDIAC ARREST Discharge Diagnosis: Syncope Suspected Cardiac Arrest Urinary tract infection Sternal fracture Hypokalemia Abnormal thyroid function test Hypertension Activity: Per Instructions section Exercise/Sports: Wait until after follow-up appointment Non-emergency contact: Primary Care Provider Call non-emergency contact if: you have any medication questions, your symptoms worsen, your pain is concerning for you and you have a fever Follow-up/Referrals: PCP,NO [Primary Care Provider] - Diet: Heart Healthy Addtl Attending Provider Instructions: Follow-up with your primary care physician in 1 week --Complete antibiotic course Keflex as prescribed for 3 more days. Start taking from 02/29/2024. --Hold taking your blood pressure medications lisinopril, hydrochlorothiazide for 2 more days. Monitor your blood pressure regularly at home. -- Get outpatient ZIO monitor as recommended to rule out any arrhythmias --Obtain thyroid function test in 4 to 6 weeks to rule out subclinical hypothyroidism Seek immediate medical attention if your symptoms reoccur or worsen Please take all medications as instructed on discharge list below. Please call if you have any questions or problems. You can reach a [facility] hospitalist on duty at [facility] 24 hours a day by calling [phone] Pending Studies at Discharge: No Stand-Alone Forms: My [facility] [address], Smoking Cessation Medications and DC Order Prescriptions: New cephalexin 500 mg capsule 500 mg PO BID Qty: 6 0RF Rx Instructions: Start taking from 02/29/24 Continued calcium carbonate [Calcium 600] 600 mg calcium (1,500 mg) Tablet 600 mg PO DAILY pantoprazole 40 mg tablet,delayed release (DR/EC) 40 mg PO DAILY risedronate 35 mg tablet 35 mg PO WK Held lisinopril 5 mg tablet 5 mg PO DAILY Hold Instructions: Hold for 2 more days hydrochlorothiazide 25 mg tablet 25 mg PO DAILY Hold Instructions: Hold for 2 more days Discharge Orders: Discharge Order (Routine); Ordered 02/28/24 Ordered By: Ghassan Meraz Admission Data Admit Date/Time: 02/26/24 17:32 Attending Provider: Ghassan Meraz Admit Provider: Quincy Alcantara Primary Care Provider: PCP,NO Other Providers: Quincy Alcantara; Megan Khan; Mal Khanna; Abimael Olson; Kenneth Olivares; Floyd Albrecht; Curt Carroll; Neisha Hair; Wendy Corley; Lise Sheets; Megan Mensah; Perry Barrett; Stefan Roman; Edwige Garrett; Rowena Gandara; Judy Adan; Dawna Steve; Nacho Rosa; Patricia River
[2024-02-28 12:05] VITALS: BP 130/81; PULSE 66; TEMP 97.9; O2SAT 99
--- NOTE | 2024-02-28 16:04 | Electrocardiogram Report ---
Test Reason : Blood Pressure : */* mmHG Vent. Rate : 55 BPM Atrial Rate : 55 BPM P-R Int : 138 ms QRS Dur : 94 ms QT Int : 418 ms P-R-T Axes : -7 -5 6 degrees QTcB Int : 399 ms Poor data quality, interpretation may be adversely affected Sinus bradycardia Low voltage QRS Incomplete right bundle branch block Abnormal ECG When compared with ECG of 27-Feb-2024 11:38, No significant change was found Confirmed by Desmond Lozano ([id number]) on 02/28/2024 4:04:15 PM Referred By: REFERRED SELF Confirmed By: Dsemond Lozano
--- NOTE | 2024-03-01 10:41 | Coding Query ---
To promote full compliance with coding requirements relating to patient care, physician participation is requested in all cases of auto body mechanic uncertainty. Please assist us with the question(s) below: Coding Question(s): "Sternal fracture: Plan: Likely due to chest compressions in the setting of known osteoporosis". After this report "in the setting" drops off. Is this fracture also due to osteoporosis? It was noted throughout the record that the patient has/is suspected to have osteoporosis. According to coding guidelines "a code for osteoporotic fracture, and not a traumatic fracture, should be used for any patient with known osteoporosis who suffers a fracture, even if the patient had a minor fall or trauma, if that fall or trauma would not usually break a normal, healthy bone." Please indicate below the type of fracture: Physician's Response(s): Traumatic fracture of Sternum ( ) Osteoporotic fracture of (auto body mechanic indicate site of fracture) ( ) Traumatic fracture of (auto body mechanic indicate site of fracture) ( ) Other, please specify MTDD
[2024-03-03 13:47] LABS: Fentanyl, Urine NEGATIVE ng/mL (<0.5); Norfentanyl, Urine 3.2 ng/mL (<0.5); medMATCH Fentanyl, Urine DNR; medMATCH Norfentanyl, Urine DNR
== END 2024-02-28 14:00 | disposition home or self-care (01) | DRG 314 ==
LOC: ED 15:01 → SUATTDRO 17:32 → 2S 17:32